=== PATIENT | male | born 1935 | race Caucasian/White ===

== ENCOUNTER 2017-04-29 17:43 | Emergency (ER) | payer MEDICARE ==
--- NOTE | 2017-04-29 20:25 | ED ---
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 Patient states he has suffered from multiple wounds similar to this due to his skin being very thin and being on xarelto. Patient states the wound if very superficial however bled a lot. Bleeding is much more controlled currently. Patient denies any pain, numbness/tingling or edema. Admits to bruising. No other injuries or complaints currently. Has not taken any medications, treatment AIR QUALITY SPECIALIST has been a dressing and compression sock. Is established with wound clinic due to patient's frequent episodes. - History of Current Complaint Stated Complaint: LOWER LT LEG LAC Time Seen by Provider: 04/29/17 18:13 Hx Obtained From: Patient, Family/Research And Development Engineer - Mechanism of Injury: Sharp/Blunt Trauma - chair Onset/Duration: Sudden Onset Aggravating: Movement Alleviating: Compression Timing: Constant Onset Severity: Mild Current Severity: Mild Pain Intensity: 5 Pain Scale Used: 0-10 Numeric Associated Signs & Symptoms: Bruising Related Hx: Dominant Hand (Right) - Additional Pertinent History Primary Care Physician: [id number] - Allergy/Home Medications Allergies/Adverse Reactions: Allergies Allergy/AdvReac Type Severity Reaction Status Date / Time Clindamycin Allergy Mild Rash Verified 04/29/17 17:46 Cortisone Allergy Mild Flushing Verified 04/29/17 17:46 Penicillins Allergy Mild Rash Verified 04/29/17 17:46 TETANUS HORSE SERUM Allergy Swelling Uncoded 04/29/17 17:46 PMH/Surg Hx/FS Hx/Imm Hx Endocrine/Hematology History: Denies: Hx Diabetes, Hx Systemic Lupus Erythematosus, Hx Anemia - iron deficency, Hx Unexplained Bleeding Cardiovascular History: Reports: 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, Hx Congestive Heart Failure, Hx Hypertension, 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, Other Cardiovascular Problems/Disorders - HX AORTIC ANYERUYSM Denies: Hx Angina, Hx Angioplasty, Hx Auto Implanted Cardiovert Defib, Hx Cardiac Arrest, Hx Cardiomegaly, Hx Congenital Heart Disease, Hx Coronary Artery Disease, Hx Deep Vein Thrombosis, Hx Embolism, Hx Hypercholesterolemia, Hx Hypotension, Hx Pacemaker/ICD, Hx Peripheral Vascular Disease, Hx Rheumatic Fever, Hx Syncope Respiratory History: Reports: Hx Chronic Obstructive Pulmonary Disease (COPD), Hx Pleural Effusion, Hx Pneumonia, Other Respiratory Problems/Disorders - BILATERAL LUNG COLLASPE POST SURGICAL Denies: Hx Asthma, Hx Chronic Bronchitis, Hx Cystic Fibrosis, Hx Lung Cancer , Hx Pulmonary Edema, Hx Pulmonary Embolism, Hx Seasonal Allergies, Hx Sleep Apnea GI History: Reports: Other GI Disorders - appendectomy, inquinal hernia repair History: Reports: Hx Benign Prostatic Hyperplasia Denies: Hx Dialysis, Hx Renal Disease Comment Only: Other Problems/Disorders - renal insufficency Musculoskeletal History: Reports: Hx Arthritis - HX BILATERAL HIP REPLACED, Hx Bursitis - OFF AND ON RIGHT LEG, Other Musculoskeletal History - Pelvic mass- benign Denies: Hx Rheumatoid Arthritis Sensory History: Reports: Hx Cataracts - BILATERAL, Hx Contacts or Glasses Denies: Hx Hearing Aid Opthamlomology History: Reports: Hx Cataracts - BILATERAL, Hx Contacts or Glasses Neurological History: Reports: Hx Headaches - HX OF CLUSTER HEADACHES IN THE , Hx Transient Ischemic Attacks (TIA) - 2013 Psychiatric History: Denies: Hx Panic Disorder - Cancer History Hx Chemotherapy: No - Surgical History Surgery Procedure, Year, and Place: both hip replacements, dental, implanted heart valve 2002 - REPLACED FEBRUARY 2013,shoulder, LUMBAR - LAMINECTOMY, hernia, broken legs as a kid; COLLAR BONE. AAA - REPAIR - 2002; CATARACT; LASER SURG - DETACHED RETINE - NO IMPLANT Hx Anesthesia Reactions: Yes - ETHER- N/V - Immunization History Date of Tetanus Vaccine: 2013 Date of Influenza Vaccine: Fall 2015 Immunizations Up to Date: Yes Infectious Disease History: Denies: Hx Clostridium Difficile, Hx Hepatitis, Hx Human Immunodeficiency Virus (HIV), Hx of Known/Suspected MRSA, Hx Shingles, Hx Tuberculosis, Hx Known/ Suspected VRE, Hx Known/Suspected VRSA, History Other Infectious Disease, Traveled Outside the [place] in Last 30 Days - Family History Known Family History: Positive: None, Cardiac Disease, Other - Arthritis, pneumonia Family History: Reviewed and noncontributory - Social History Alcohol Use: Occasionally Hx Substance Use: No Substance Use Type: Reports: None Hx Tobacco Use: No Smoking Status (MU): Never Smoked Tobacco Review of Systems Constitutional: Negative Cardiovascular: Negative Respiratory: Negative Musculoskeletal: Negative Positive: Other - laceration/skin tear to left lower extremity Neurological: Negative All Other Systems Reviewed And Are Negative: Yes Physical Exam Triage Information Reviewed: Yes Vital Signs On Initial Exam: Initial Vitals Temp Pulse Resp BP Pulse Ox 98.6 F 71 16 144/67 97 04/29/17 17:46 04/29/17 17:46 04/29/17 17:46 04/29/17 17:46 04/29/17 17:46 Vital Signs Reviewed: Yes Appearance: Positive: Well-Appearing, No Pain Distress, Well-Nourished Skin: Positive: Warm, Skin Color Reflects Adequate Perfusion, Dry, Other - skin tear/avulsion superficial epidermal layer with no SQ tissue involvement approximately 10 cm linear u shaped. approximates well with pulled tension. very thin, fragile skin. minimal to no bleeding. ecchymosis noted. no tenderness or edema/. Negative: Cold, Cyanosis @, Pale, Erythema @ Head/Face: Positive: Normal Head/Face Inspection Eyes: Positive: Conjunctiva Clear ENT: Positive: Hearing grossly normal Neck: Positive: Supple, Nontender Respiratory/Lung Sounds: Positive: Clear to Auscultation, Breath Sounds Present. Negative: Rales, Rhonchi, Wheezes Cardiovascular: Positive: Normal, RRR, Pulses are Symmetrical in both Upper and Lower Extremities - 2+ pedal. Negative: Murmur, Rub Musculoskeletal: Positive: Normal, Strength/ROM Intact. Negative: Limited @, Interruption @, Pain @ Neurological: Positive: Normal, Sensory/Motor Intact - snesation intact, Alert, Oriented to Person Place, Time, Reflexes Intact, NV Bundle Intact Distally, Normal Gait Psychiatric: Positive: Affect/Mood Appropriate Procedures - Laceration/Wound Repair 1 Location: lower extremity - left lower Description: Linear Length, Depth and Shape: 10cm, linear, u-shaped, skin avulsion, superficial epidermal layer, not deep Irrigated w/ Saline (ccs): 200 Laceration/Wound Explored: clean, no foreign body removed Closure: SteriStrips - 8 Sterile Dressing Applied?: Yes - telfa and kerlex/coband Diagnostics - Vital Signs Vital Signs Temp Pulse Resp BP Pulse Ox 04/29/17 17:46 98.6 F 71 16 144/67 97 - Laboratory Lab Statement: Any lab studies that have been ordered have been reviewed, and results considered in the medical decision making process. Laceration Repair Course/Dx - Course Course Of Treatment: wound was thouroughly irrigated, bleeding was minimal to none. no concern for bony injury, no need for x-ray. wound was closed using 8 steri stips. without complication. well approximation. sutures would not hold due to skin texture, thin and fragile. covered with telfa and kerlex/coband. Keep clean and dry. Aware of worsening signs and symptoms adn to return if occur. No concern for hypovolemia. Follow up pcp and wound clinic. tetanus UTD 2013 - Differential Dx Differental Diagnoses: Abrasion, Avulsion, Healing Wound, Hematoma, Laceration - Clinical Impression Provider Diagnoses: Avulsion of skin Discharge - Discharge Plan Condition: Stable Disposition: HOME Patient Education Materials: Skin Avulsion (ED) Referrals: Toma Bermudez MD [Primary Care Provider] - Additional Instructions: Keep dressing on for 48 hours. Do not get wet. After 48 hours, re-dress, you may shower however do not submerge or soak wound. Re-dress. Let steri-strips fall off on their own. Once off, apply xeroform dressing given to you. Keep clean and dry. Follow up with wound clinic and PCP. If symptoms worsen such as bleeding through dressing please seek medical attention promptly.
[2017-04-29 20:32] VITALS: BP 113/43
[2017-04-29] MEDS ORDERED: LORazepam INJ* 2 MG/ML 1 ML VIAL IV PUSH ONE (20:52)
== END 2017-04-29 20:34 | disposition home or self-care (01) ==
LOC: ED 17:43
DX: S81.812A Laceration without foreign body, left lower leg, initial encounter (principal); X58.XXXA Exposure to other specified factors, initial encounter; Y93.9 Activity, unspecified; Y92.89 Other specified places as the place of occurrence of the external cause; Z79.01 Long term (current) use of anticoagulants; Z86.79 Personal history of other diseases of the circulatory system
CPT/HCPCS: 96374; 99282

== ENCOUNTER 2017-05-10 05:02 | Emergency (ER) | payer MEDICARE ==
--- NOTE | 2017-05-10 05:43 | ED ---
Delicia Brown Rebecca, scribed for Sanjeev Gage MD on 05/10/17 at 0527 . Adult Trauma - HPI Summary HPI Summary: Pt is a 81 y/o M who presents to ED s/p mechanical fall. Reports that yesterday afternoon he fell off a rock pile, causing a RUE laceration and and abrasion. Negative LOC. Applied compression wrappings after the fall. Reports that he has bled through 4 wraps and 2 compression socks on the RUE. Is on Xarelto. - History of Current Complaint Chief Complaint: EDGeneral Stated Complaint: RT ARM LAC Hx Obtained From: Patient Mechanism of Injury: Fall Loss of Consciousness: no loss of consciousness Onset/Duration: Traumatic, Still Present Onset of Pain: Days - 1 day, Prior to Arrival Current Severity: Mild Pain Intensity: 1 Pain Scale Used: 0-10 Numeric Location: Extremities - RUE Associated Signs & Symptoms: Negative: Loss of Consciousness Related History: Anticoagulants - Xarelto - Additional Pertinent History Primary Care Physician: YVAN - Allergy/Home Medications Allergies/Adverse Reactions: Allergies Allergy/AdvReac Type Severity Reaction Status Date / Time Clindamycin Allergy Mild Rash Verified 05/10/17 05:19 Cortisone Allergy Mild Flushing Verified 05/10/17 05:19 Penicillins Allergy Mild Rash Verified 05/10/17 05:19 TETANUS HORSE SERUM Allergy Swelling Uncoded 05/10/17 05:19 PMH/Surg Hx/FS Hx/Imm Hx Endocrine/Hematology History: Denies: Hx Diabetes, Hx Systemic Lupus Erythematosus, Hx Anemia - iron deficency, Hx Unexplained Bleeding Cardiovascular History: Reports: 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, Hx Congestive Heart Failure, Hx Hypertension, 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, Other Cardiovascular Problems/Disorders - HX AORTIC ANYERUYSM Denies: Hx Angina, Hx Angioplasty, Hx Auto Implanted Cardiovert Defib, Hx Cardiac Arrest, Hx Cardiomegaly, Hx Congenital Heart Disease, Hx Coronary Artery Disease, Hx Deep Vein Thrombosis, Hx Embolism, Hx Hypercholesterolemia, Hx Hypotension, Hx Pacemaker/ICD, Hx Peripheral Vascular Disease, Hx Rheumatic Fever, Hx Syncope Respiratory History: Reports: Hx Chronic Obstructive Pulmonary Disease (COPD), Hx Pleural Effusion, Hx Pneumonia, Other Respiratory Problems/Disorders - BILATERAL LUNG COLLASPE POST SURGICAL Denies: Hx Asthma, Hx Chronic Bronchitis, Hx Cystic Fibrosis, Hx Lung Cancer , Hx Pulmonary Edema, Hx Pulmonary Embolism, Hx Seasonal Allergies, Hx Sleep Apnea GI History: Reports: Other GI Disorders - appendectomy, inquinal hernia repair History: Reports: Hx Benign Prostatic Hyperplasia Denies: Hx Dialysis, Hx Renal Disease Comment Only: Other Problems/Disorders - renal insufficency Musculoskeletal History: Reports: Hx Arthritis - HX BILATERAL HIP REPLACED, Hx Bursitis - OFF AND ON RIGHT LEG, Other Musculoskeletal History - Pelvic mass- benign Denies: Hx Rheumatoid Arthritis Sensory History: Reports: Hx Cataracts - BILATERAL, Hx Contacts or Glasses Denies: Hx Hearing Aid Opthamlomology History: Reports: Hx Cataracts - BILATERAL, Hx Contacts or Glasses Neurological History: Reports: Hx Headaches - HX OF CLUSTER HEADACHES IN THE , Hx Transient Ischemic Attacks (TIA) - 2013 Psychiatric History: Denies: Hx Panic Disorder - Cancer History Hx Chemotherapy: No - Surgical History Surgery Procedure, Year, and Place: both hip replacements, dental, implanted heart valve 2002 - REPLACED FEBRUARY 2013,shoulder, LUMBAR - LAMINECTOMY, hernia, broken legs as a kid; COLLAR BONE. AAA - REPAIR - 2002; CATARACT; LASER SURG - DETACHED RETINE - NO IMPLANT Hx Anesthesia Reactions: Yes - ETHER- N/V - Immunization History Date of Tetanus Vaccine: 2013 Date of Influenza Vaccine: Fall 2015 Infectious Disease History: No Infectious Disease History: Denies: Hx Clostridium Difficile, Hx Hepatitis, Hx Human Immunodeficiency Virus (HIV), Hx of Known/Suspected MRSA, Hx Shingles, Hx Tuberculosis, Hx Known/ Suspected VRE, Hx Known/Suspected VRSA, History Other Infectious Disease, Traveled Outside the [place] in Last 30 Days - Family History Known Family History: Positive: Cardiac Disease, Other - Arthritis, pneumonia - Social History Alcohol Use: Occasionally Hx Substance Use: No Substance Use Type: Reports: None Hx Tobacco Use: No Smoking Status (MU): Never Smoked Tobacco Review of Systems Positive: Other - RUE laceration and abrasion s/p fall Neurological: Other - NEGATIVE: LOC All Other Systems Reviewed And Are Negative: Yes Physical Exam Triage Information Reviewed: Yes Vital Signs On Initial Exam: Initial Vitals Temp Pulse Resp BP Pulse Ox 97.0 F 72 16 145/79 97 05/10/17 05:10 05/10/17 05:10 05/10/17 05:10 05/10/17 05:10 05/10/17 05:10 Vital Signs Reviewed: Yes Appearance: Positive: Well-Appearing, No Pain Distress Skin: Positive: Other - skin tear rt forearm Head/Face: Positive: Normal Head/Face Inspection Eyes: Positive: GISELLE ENT: Positive: Hearing grossly normal Neck: Positive: Supple Respiratory/Lung Sounds: Positive: Clear to Auscultation, Breath Sounds Present Cardiovascular: Positive: RRR Abdomen Description: Positive: Nontender, Soft Bowel Sounds: Positive: Present Musculoskeletal: Positive: Other - skin tear rt forearm Neurological: Positive: Alert, Oriented to Person Place, Time Diagnostics - Vital Signs Vital Signs Temp Pulse Resp BP Pulse Ox 05/10/17 05:10 97.0 F 70 16 145/79 97 - Laboratory Lab Statement: Any lab studies that have been ordered have been reviewed, and results considered in the medical decision making process. - CT Brain CT CT Interpretation: No Acute Changes - No evidence of acute pathology. ED physician reviewed this radiology repotr and agrees. CT Interpretation Completed By: Radiologist Adult Trauma Course/Dx - Course Assessment/Plan: Pt is a 81 y/o M who presents to ED s/p mechanical fall. Reports that yesterday afternoon he fell off a rock pile, causing a RUE laceration and and abrasion. Negative LOC. Applied compression wrappings after the fall. Reports that he has bled through 4 wraps and 2 compression socks on the RUE. Is on Xarelto. Brain CT reveals no acute findings. Pt will be D/C to home with Dx of skin tear and head contusion s/p fall with a follow up with his PCP. He understands and agrees. ELevated BP noted and advised to f/u. - Diagnoses Provider Diagnoses: Skin tear, head contusion s/p fall Discharge - Discharge Plan Condition: Stable Disposition: HOME Patient Education Materials: Skin Tear (ED), Contusion in Adults (ED) Referrals: Toma Bermudez MD [Primary Care Provider] - 3 Days The documentation as recorded by the Delicia ortiz Rebecca accurately reflects the service I personally performed and the decisions made by me, Sanjeev Gage MD.
[2017-05-10 06:33] VITALS: BP 118/44
--- NOTE | 2017-05-10 07:48 | RAD ---
INDICATION: Head injury. COMPARISON: Comparison is made with a prior CT of the brain from September 20, 2013. TECHNIQUE: Contiguous axial sections of the brain were obtained from the skull base to the vertex without contrast. FINDINGS: The ventricles, cisterns and sulci are enlarged consistent with diffuse atrophy. No significant focal abnormality or mass effect is seen. There is no evidence for hemorrhage. No significant focal osseous abnormality is seen. The visualized portion of the paranasal sinuses and mastoid air cells appear clear. IMPRESSION: NO EVIDENCE FOR ACUTE INTRACRANIAL ABNORMALITY.
== END 2017-05-10 06:28 | disposition home or self-care (01) ==
LOC: ED 05:02
DX: M79.601 Pain in right arm (principal); S41.111A Laceration without foreign body of right upper arm, initial encounter; W19.XXXA Unspecified fall, initial encounter; Y93.89 Activity, other specified; Y92.89 Other specified places as the place of occurrence of the external cause
CPT/HCPCS: 70450; 99283

== ENCOUNTER 2017-08-10 03:34 | Emergency (ER) | payer MEDICARE ==
[2017-08-10 04:50] LABS: Hematocrit 36 % (42-52); Hemoglobin 12.1 g/dl (14.0-18.0); Mean Corpuscular HGB Conc 33 g/dl (31-36); Mean Corpuscular Hemoglobin 30 pg (27-31); Mean Corpuscular Volume 92 fL (80-94); Mean Platelet Volume 10 um3 (7.4-10.4); Red Blood Count 3.97 10^6/ul (4.0-5.4); Red Cell Distribution Width 14 % (10.5-15); White Blood Count 6.8 10^3/ul (3.5-10.8)
[2017-08-10 05:01] LABS: Albumin 3.7 g/dL (3.2-5.2); BUN/Creatinine Ratio 20.2 (8-20); Calcium 8.8 mg/dL (8.6-10.3); EGFR African American 47.5 (>60); Globulin 2.2 g/dL (2-4); Potassium 4.3 mmol/L (3.5-5.0); Total Bilirubin 0.6 mg/dL (0.2-1.0); Total Protein 5.9 g/dL (6.4-8.9)
[2017-08-10 05:06] LABS: Troponin I 0.04 ng/mL (<0.04)
[2017-08-10 05:17] LABS: TSH (Thyroid Stimulating Horm) 6.49 mcIU/mL (0.34-5.60)
[2017-08-10] MEDS ORDERED: Furosemide IV* 10 MG/ML 10 ML VIAL (100 MG) IV ONE (05:38)
[2017-08-10 06:18] VITALS: BP 117/49
--- NOTE | 2017-08-10 08:30 | RAD ---
INDICATION: Palpitations COMPARISON: Most recent comparison chest x-rays dated April 11, 2017 TECHNIQUE: Single AP portable view of the chest was obtained. FINDINGS: Image quality is compromised due to the relative inferiority of a portable chest x-ray. Sternotomy wires are again seen. There appears to be a mild degree of cardiomegaly. The pulmonary vasculature is engorged and indistinct. There is density obscuring the right lung base and causing right costophrenic angle blunting. More superiorly the lungs are well aerated. Visualized bones are normal for the patient's age. IMPRESSION: In the correct clinical setting chest x-ray findings are most indicative of cardiogenic pulmonary edema with a small right lung base pleural effusion.
--- NOTE | 2017-08-15 17:32 | ED ---
Alton Brown Thomas, scribed for Nesha Kilgore MD on 08/10/17 at 0640 . HPI Cardiac - HPI Summary HPI Summary: The pt is an 82 y/o M presenting to the ED c/o palpitations characterized as racing that began last night when he was seated in his rocking chair. He recently has been dealing with a cough. He becomes short of breath when walking. He has some heaviness in his chest that began in the last hour. Pt denies gottlieb, fever, chills, ear pain, chest pain, back pain, blood in urine or stool, back pain, He is on Xarelto. - History of Current Complaint Chief Complaint: EDDysrhythmPalp Stated Complaint: RAPID HEART RATE Time Seen by Provider: 08/10/17 04:28 Hx Obtained From: Patient Onset/Duration: Started Days Ago - 1, Still Present Timing: Constant - 1 Current Severity: Moderate Pain Intensity: 0 Pain Scale Used: 0-10 Numeric Chest Pain Radiates: No Character: Heaviness Aggravating Factor(s): Other: - When walking, he becomes short of breath Alleviating Factor(s): Nothing Associated Signs and Symptoms: Positive: Other: - Palpitations, cough, SOB, cheast heaviness - Additional Pertinent History Primary Care Physician: [id number] - Allergy/Home Medications Allergies/Adverse Reactions: Allergies Allergy/AdvReac Type Severity Reaction Status Date / Time Clindamycin Allergy Mild Rash Verified 08/10/17 03:40 Cortisone Allergy Mild Flushing Verified 08/10/17 03:40 Penicillins Allergy Mild Rash Verified 08/10/17 03:40 TETANUS HORSE SERUM Allergy Swelling Uncoded 08/10/17 03:40 PMH/Surg Hx/FS Hx/Imm Hx Previously Healthy: No Endocrine/Hematology History: Denies: Hx Diabetes, Hx Systemic Lupus Erythematosus, Hx Anemia - iron deficency, Hx Unexplained Bleeding Cardiovascular History: Reports: 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, Hx Congestive Heart Failure, Hx Hypertension, 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, Other Cardiovascular Problems/Disorders - HX AORTIC ANYERUYSM Denies: Hx Angina, Hx Angioplasty, Hx Auto Implanted Cardiovert Defib, Hx Cardiac Arrest, Hx Cardiomegaly, Hx Congenital Heart Disease, Hx Coronary Artery Disease, Hx Deep Vein Thrombosis, Hx Embolism, Hx Hypercholesterolemia, Hx Hypotension, Hx Pacemaker/ICD, Hx Peripheral Vascular Disease, Hx Rheumatic Fever, Hx Syncope Respiratory History: Reports: Hx Chronic Obstructive Pulmonary Disease (COPD), Hx Pleural Effusion, Hx Pneumonia, Other Respiratory Problems/Disorders - BILATERAL LUNG COLLASPE POST SURGICAL Denies: Hx Asthma, Hx Chronic Bronchitis, Hx Cystic Fibrosis, Hx Lung Cancer , Hx Pulmonary Edema, Hx Pulmonary Embolism, Hx Seasonal Allergies, Hx Sleep Apnea GI History: Reports: Other GI Disorders - appendectomy, inquinal hernia repair History: Reports: Hx Benign Prostatic Hyperplasia Denies: Hx Dialysis, Hx Renal Disease Comment Only: Other Problems/Disorders - renal insufficency Musculoskeletal History: Reports: Hx Arthritis - HX BILATERAL HIP REPLACED, Hx Bursitis - OFF AND ON RIGHT LEG, Other Musculoskeletal History - Pelvic mass- benign Denies: Hx Rheumatoid Arthritis Sensory History: Reports: Hx Cataracts - BILATERAL, Hx Contacts or Glasses Denies: Hx Hearing Aid Opthamlomology History: Reports: Hx Cataracts - BILATERAL, Hx Contacts or Glasses Neurological History: Reports: Hx Headaches - HX OF CLUSTER HEADACHES IN THE , Hx Transient Ischemic Attacks (TIA) - 2013 Psychiatric History: Denies: Hx Panic Disorder - Cancer History Hx Chemotherapy: No - Surgical History Surgery Procedure, Year, and Place: both hip replacements, dental, implanted heart valve 2002 - REPLACED FEBRUARY 2013,shoulder, LUMBAR - LAMINECTOMY, hernia, broken legs as a kid; COLLAR BONE. AAA - REPAIR - 2002; CATARACT; LASER SURG - DETACHED RETINE - NO IMPLANT Hx Anesthesia Reactions: Yes - ETHER- N/V - Immunization History Date of Tetanus Vaccine: 2013 Date of Influenza Vaccine: Fall 2015 Infectious Disease History: No Infectious Disease History: Denies: Hx Clostridium Difficile, Hx Hepatitis, Hx Human Immunodeficiency Virus (HIV), Hx of Known/Suspected MRSA, Hx Shingles, Hx Tuberculosis, Hx Known/ Suspected VRE, Hx Known/Suspected VRSA, History Other Infectious Disease, Traveled Outside the [place] in Last 30 Days - Family History Known Family History: Positive: Cardiac Disease, Other - Arthritis, pneumonia - Social History Alcohol Use: Occasionally Hx Substance Use: No Substance Use Type: Reports: None Hx Tobacco Use: No Smoking Status (MU): Former Smoker Review of Systems Negative: Fever, Chills Negative: Blurred Vision, Diplopia Negative: Sore Throat Positive: Palpitations, Other - Chest heaviness Positive: Shortness Of Breath, Cough Negative: Vomiting, Diarrhea, Nausea Negative: dysuria, hematuria Negative: Myalgia Negative: Rash Negative: Headache Negative: Anxious, Depressed All Other Systems Reviewed And Are Negative: No Physical Exam - Summary Physical Exam Summary: Appearance: Alert, conversive, nontoxic appearing Skin: Warm, dry. There are multiple bruises to the upper extremities and the right cheek. No mottling, no rashes, no contusions HEENT: EOMI, PERRL, moist mucous membranes Neck: No masses on the neck, supple Respiratory: There are crackles and a bit of a wheeze. Cardiovascular: RRR, pulses are symmetrical in both lower and upper extremities Abdomen: Soft, non-tender Bowel Sounds: Present Musculoskeletal: No CVA tenderness, no obvious deformity, moving all extremities in a grossly normal manner Neurological: A&Ox3, CN II-XII Intact, moving all extremities symmetrically Psychiatric: Normal affect and mood Triage Information Reviewed: Yes Vital Signs On Initial Exam: Initial Vitals Temp Pulse Resp BP Pulse Ox 97.2 F 112 16 147/71 98 08/10/17 03:36 08/10/17 03:36 08/10/17 03:36 08/10/17 03:36 08/10/17 03:36 Vital Signs Reviewed: Yes - [place] Coma Scale Coma Scale Total: 15 Diagnostics - Vital Signs Vital Signs Temp Pulse Resp BP Pulse Ox 08/10/17 06:17 64 16 117/49 97 08/10/17 05:18 75 16 126/49 97 08/10/17 03:36 97.2 F 112 16 147/71 98 - Laboratory Lab Results: Lab Results 08/10/17 08/10/17 08/10/17 Range/Units 04:27 04:27 04:27 WBC 6.8 (3.5-10.8) 10^3/ul RBC 3.97 L (4.0-5.4) 10^6/ul Hgb 12.1 L (14.0-18.0) g/dl Hct 36 L (42-52) % MCV 92 (80-94) fL MCH 30 (27-31) pg MCHC 33 (31-36) g/dl RDW 14 (10.5-15) % Plt Count 111 L (150-450) 10^3/ul MPV 10 (7.4-10.4) um3 Neut % (Auto) 72.0 (38-83) % Lymph % (Auto) 17.0 L (25-47) % Teller % (Auto) 8.0 (1-9) % Eos % (Auto) 2.3 (0-6) % Baso % (Auto) 0.7 (0-2) % Absolute Neuts (auto) 4.9 (1.5-7.7) 10^3/ul Absolute Lymphs (auto) 1.2 (1.0-4.8) 10^3/ul Absolute Monos (auto) 0.5 (0-0.8) 10^3/ul Absolute Eos (auto) 0.2 (0-0.6) 10^3/ul Absolute Basos (auto) 0 (0-0.2) 10^3/ul Absolute Nucleated RBC 0 10^3/ul Nucleated RBC % 0 Sodium 138 (133-145) mmol/L Potassium 4.3 (3.5-5.0) mmol/L Chloride 108 (101-111) mmol/L Carbon Dioxide 23 (22-32) mmol/L Anion Gap 7 (2-11) mmol/L BUN 36 H (6-24) mg/dL Creatinine 1.78 H (0.67-1.17) mg/dL Est GFR ( Amer) 47.5 (>60) Est GFR (Non-Af Amer) 37.0 (>60) BUN/Creatinine Ratio 20.2 H (8-20) Glucose 106 H (70-100) mg/dL Calcium 8.8 (8.6-10.3) mg/dL Magnesium 2.0 (1.9-2.7) mg/dL Total Bilirubin 0.60 (0.2-1.0) mg/dL AST 36 (13-39) U/L ALT 38 (7-52) U/L Alkaline Phosphatase 51 (34-104) U/L Troponin I 0.04 H* (<0.04) ng/mL B-Natriuretic Peptide 1681 H ( - 100) pg/mL Total Protein 5.9 L (6.4-8.9) g/dL Albumin 3.7 (3.2-5.2) g/dL Globulin 2.2 (2-4) g/dL Albumin/Globulin Ratio 1.7 (1-3) TSH 6.49 H (0.34-5.60) mcIU/mL Result Diagrams: 08/10/17 04:27 08/10/17 04:27 Lab Statement: Any lab studies that have been ordered have been reviewed, and results considered in the medical decision making process. Disposition - Diagnoses Provider Diagnoses: Heart failure, Pleural effusion - Physician Notifications Discussed Care Of Patient With: Anne Flores Time Discussed With Above Provider: 06:42 Instructed by Provider To: Other - I spoke with Dr. Flores, hospitalist. She feels that this is simply heart failure. We will treat the patient with Lasix. Discharge - Discharge Plan Condition: Stable Disposition: HOME Patient Education Materials: Heart Failure (ED), Pleural Effusion (ED) Referrals: Toma Bermudez MD [Primary Care Provider] - Additional Instructions: Please take your furosemide 40mg daily for the next 3 days. follow up with your primary care physician and your diesel instructor in 1-2 days. return if worse or any new symptoms. Take all medications as previously instructed. The documentation as recorded by the Alton ortiz Thomas accurately reflects the service I personally performed and the decisions made by , Nesha Kilgore MD.
== END 2017-08-10 06:44 | disposition home or self-care (01) ==
LOC: ED 03:34
DX: R00.2 Palpitations (principal); R05 Cough; R06.02 Shortness of breath; Z87.891 Personal history of nicotine dependence
CPT/HCPCS: 36415; 71010; 80053; 83735; 83880; 84443; 84484; 85025; 87040; 93005; 96374; 99283; J1940

== ENCOUNTER 2017-12-23 06:42 | Emergency (ER) | payer MEDICARE ==
[2017-12-23] MEDS ORDERED: Ondansetron INJ* 2 MG/ML VIAL IV ONE (07:17)
[2017-12-23] MEDS ORDERED: Meropenem 1 GM PREMIX(*) 1 GM/50 ML BAG IV ONE (07:18)
[2017-12-23 07:54] LABS: ABS Basophils 0.1 10^3/ul (0-0.2); ABS Eosinophils 0.2 10^3/ul (0-0.6); ABS Monocytes 0.8 10^3/ul (0-0.8); ABS Neutrophils 5.5 10^3/ul (1.5-7.7); ABS Nucleated RBC 0 10^3/ul; Eosinophil % 2.6 % (0-6); Hematocrit 37 % (42-52); Hemoglobin 12.1 g/dl (14.0-18.0); Lymphocyte % 13.1 % (25-47); Mean Corpuscular HGB Conc 33 g/dl (31-36); Mean Corpuscular Hemoglobin 30 pg (27-31); Mean Corpuscular Volume 91 fL (80-94); Mean Platelet Volume 11.4 um3 (7.4-10.4); Nucleated Red Blood Cells % 0.1; Platelet Count 72 10^3/ul (150-450); Red Cell Distribution Width 17 % (10.5-15); White Blood Count 7.6 10^3/ul (3.5-10.8)
[2017-12-23 07:58] LABS: INR 3.61 (0.77-1.02)
[2017-12-23 08:03] LABS: EGFR Non-African American 38.7 (>60)
--- NOTE | 2017-12-23 08:38 | RAD ---
HISTORY: Abdominal distention COMPARISONS: None VIEWS: Frontal views of the abdomen. FINDINGS: BOWEL: There is a nonspecific bowel gas pattern, with nondilated small bowel gas noted. There is a large amount of stool within the colon. CALCULI: There are no abnormal calculi. BONES AND SOFT TISSUES: The patient is status post bilateral hip arthroplasty. Degenerative changes are noted of the spine. The patient is status post median sternotomy. OTHER FINDINGS: There are small bilateral pleural effusions versus chronic pleural thickening. There is no subphrenic gas. IMPRESSION: 1. NONSPECIFIC BOWEL GAS PATTERN. LARGE AMOUNT OF STOOL THROUGHOUT THE COLON. 2. SMALL BILATERAL PLEURAL EFFUSIONS VERSUS CHRONIC PLEURAL THICKENING.
--- NOTE | 2017-12-23 08:39 | RAD ---
HISTORY: Shortness of breath, endocarditis COMPARISONS: December 08, 2017 VIEWS: 4: Frontal dual-energy and lateral views of the chest. FINDINGS: CARDIOMEDIASTINAL SILHOUETTE: The cardiac silhouette is enlarged. The cardiomediastinal silhouette is otherwise normal. JULITO: The julito are normal. PLEURA: There are small bilateral pleural effusions. LUNG PARENCHYMA: There is been interval development of patchy alveolar opacification of the right lung base. ABDOMEN: The upper abdomen is clear. There is no subphrenic gas. BONES AND SOFT TISSUES: No bone or soft tissue abnormalities are noted. OTHER: A right-sided PICC line is noted with the tip overlying the superior vena cava. IMPRESSION: 1. CARDIOMEGALY. 2. SMALL BILATERAL PLEURAL EFFUSIONS. 3. RIGHT LOWER LUNG CONSOLIDATION. RECOMMEND FOLLOW-UP UNTIL RESOLUTION TO EXCLUDE UNDERLYING PULMONARY PARENCHYMAL PATHOLOGY.
[2017-12-23 09:03] VITALS: BP 108/73
--- NOTE | 2017-12-23 09:51 | ED ---
Steve Brown Julia, scribed for Corey Muhammad MD on 12/23/17 at 0724 . Shortness of Breath - HPI Summary HPI Summary: This patient is a 82 year old M [facility] accompanied by his with a chief complaint of SOB, nausea, and abdominal distention described as hard accompanied by poor sleep. Patient reports urinary urgency and frequency but is not putting outhis typical amount of urine. Patient denies fever and abdominal pain. 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 He has had two previous aortic valve replacements with the most recent being in 2012 at [facility] in [place]. He reports no recent use of pain medication. He is not regularly on oxygen but nasal cannula O2 is relieving his symptoms now. Patient is currently taking 1g of Meropenem daily. His states he has been eating poorly. Pt has a hx of CHF. - History of Current Complaint Chief Complaint: EDShortnessOfBreath Time Seen by Provider: 12/23/17 07:06 Hx Obtained From: Patient, Family/Professor Of Law Timing: Constant Dyspnea At: Rest Aggrevating Factors: Movement - exertion Associated Signs & Symptoms: Negative - fever Related History: Similar Episode - aortic valve replacement - Allergy/Home Medications Allergies/Adverse Reactions: Allergies Allergy/AdvReac Type Severity Reaction Status Date / Time Horse/Equine Containing Allergy Swelling Verified 12/23/17 06:50 Products tetanus and diphtheria Allergy Swelling Verified 12/23/17 06:50 toxoids tetanus immune globulin Allergy Swelling Verified 12/23/17 06:50 tetanus toxoid, adsorbed Allergy Swelling Verified 12/23/17 06:50 Tetanus Vaccines and Toxoid Allergy Swelling Verified 12/23/17 06:50 clindamycin AdvReac Intermediate Rash Verified 12/23/17 06:50 cortisone AdvReac Intermediate Flushing Verified 12/23/17 06:50 Penicillins AdvReac Intermediate Rash Verified 12/23/17 06:50 TETANUS HORSE SERUM Allergy Swelling Uncoded 12/23/17 06:50 Home Medications: Home Medications Meropenem 500MG PREMIX(*) [Merrem 500MG PREMIX(*)] 1,000 mg IV Q12H 12/23/17 [ History Confirmed 12/23/17] PMH/Surg Hx/FS Hx/Imm Hx Endocrine/Hematology History: Denies: Hx Diabetes, Hx Systemic Lupus Erythematosus, Hx Anemia - iron deficency, Hx Unexplained Bleeding Cardiovascular History: Reports: 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, Hx Congestive Heart Failure, Hx Hypertension, 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, Other Cardiovascular Problems/Disorders - HX AORTIC ANYERUYSM Denies: Hx Angina, Hx Angioplasty, Hx Auto Implanted Cardiovert Defib, Hx Cardiac Arrest, Hx Cardiomegaly, Hx Congenital Heart Disease, Hx Coronary Artery Disease, Hx Deep Vein Thrombosis, Hx Embolism, Hx Hypercholesterolemia, Hx Hypotension, Hx Pacemaker/ICD, Hx Peripheral Vascular Disease, Hx Rheumatic Fever, Hx Syncope Respiratory History: Reports: Hx Chronic Obstructive Pulmonary Disease (COPD), Hx Pleural Effusion, Hx Pneumonia, Other Respiratory Problems/Disorders - BILATERAL LUNG COLLASPE POST SURGICAL Denies: Hx Asthma, Hx Chronic Bronchitis, Hx Cystic Fibrosis, Hx Lung Cancer , Hx Pulmonary Edema, Hx Pulmonary Embolism, Hx Seasonal Allergies, Hx Sleep Apnea GI History: Reports: Other GI Disorders - appendectomy, inquinal hernia repair History: Reports: Hx Benign Prostatic Hyperplasia Denies: Hx Dialysis, Hx Renal Disease Comment Only: Other Problems/Disorders - renal insufficency Musculoskeletal History: Reports: Hx Arthritis - HX BILATERAL HIP REPLACED, Hx Bursitis - OFF AND ON RIGHT LEG, Other Musculoskeletal History - Pelvic mass- benign Denies: Hx Rheumatoid Arthritis Sensory History: Reports: Hx Cataracts - BILATERAL, Hx Contacts or Glasses Denies: Hx Hearing Aid Opthamlomology History: Reports: Hx Cataracts - BILATERAL, Hx Contacts or Glasses Neurological History: Reports: Hx Headaches - HX OF CLUSTER HEADACHES IN THE , Hx Transient Ischemic Attacks (TIA) - 2013 Psychiatric History: Denies: Hx Panic Disorder - Cancer History Hx Chemotherapy: No - Surgical History Surgery Procedure, Year, and Place: both hip replacements, dental, implanted heart valve 2002 - REPLACED FEBRUARY 2013,shoulder, LUMBAR - LAMINECTOMY, hernia, broken legs as a kid; COLLAR BONE. AAA - REPAIR - 2002; CATARACT; LASER SURG - DETACHED RETINE - NO IMPLANT Hx Anesthesia Reactions: Yes - ETHER- N/V - Immunization History Date of Tetanus Vaccine: 2013 Date of Influenza Vaccine: Fall 2015 Infectious Disease History: No Infectious Disease History: Denies: Hx Clostridium Difficile, Hx Hepatitis, Hx Human Immunodeficiency Virus (HIV), Hx of Known/Suspected MRSA, Hx Shingles, Hx Tuberculosis, Hx Known/ Suspected VRE, Hx Known/Suspected VRSA, History Other Infectious Disease, Traveled Outside the [place] in Last 30 Days - Family History Known Family History: Positive: Cardiac Disease, Other - Arthritis, pneumonia - Social History Occupation: Retired Alcohol Use: None Hx Substance Use: No Substance Use Type: Reports: None Hx Tobacco Use: No Smoking Status (MU): Former Smoker Review of Systems Negative: Fever Positive: Shortness Of Breath Gastrointestinal: Other - abdominal distention Positive: Nausea. Negative: Abdominal Pain Positive: frequency, urgency All Other Systems Reviewed And Are Negative: Yes Physical Exam - Summary Physical Exam Summary: Appearance: Well appearing, no pain distress Skin: warm, dry, reflects adequate perfusion Head/face: normal, mucous membranes are tacky Eyes: EOMI, GISELLE ENT: normal Neck: supple, non-tender Respiratory: bibasilar crackles, breath sounds present, tachypnic Cardiovascular: RRR, pulses symmetrical, hard to hear murmur through respiratory pattern Abdomen: non-tender, soft Bowel Sounds: present Musculoskeletal: strength/ROM intact, PICC line in RUE, 1+ bilateral lower extremity edema Neuro: normal, sensory motor intact, A&Ox3 Triage Information Reviewed: Yes Vital Signs On Initial Exam: Initial Vitals Temp Pulse Resp BP Pulse Ox 97.6 F 58 20 130/45 100 12/23/17 06:48 12/23/17 06:48 12/23/17 06:48 12/23/17 06:48 12/23/17 06:48 Vital Signs Reviewed: Yes Diagnostics - Vital Signs Vital Signs Temp Pulse Resp BP Pulse Ox 12/23/17 06:58 57 25 98 12/23/17 06:53 57 21 99 12/23/17 06:52 127/50 12/23/17 06:48 97.6 F 58 20 130/45 100 - Laboratory Lab Results: Lab Results 12/23/17 12/23/17 12/23/17 Range/Units 07:30 07:30 07:30 WBC (3.5-10.8) 10^3/ul RBC (4.0-5.4) 10^6/ul Hgb (14.0-18.0) g/dl Hct (42-52) % MCV (80-94) fL MCH (27-31) pg MCHC (31-36) g/dl RDW (10.5-15) % Plt Count (150-450) 10^3/ul MPV (7.4-10.4) um3 Neut % (Auto) (38-83) % Lymph % (Auto) (25-47) % Meagher % (Auto) (0-7) % Eos % (Auto) (0-6) % Baso % (Auto) (0-2) % Absolute Neuts (auto) (1.5-7.7) 10^3/ul Absolute Lymphs (auto) (1.0-4.8) 10^3/ul Absolute Monos (auto) (0-0.8) 10^3/ul Absolute Eos (auto) (0-0.6) 10^3/ul Absolute Basos (auto) (0-0.2) 10^3/ul Absolute Nucleated RBC 10^3/ul Nucleated RBC % INR (Anticoag Therapy) 3.61 H (0.77-1.02) APTT 45.6 H (26.0-36.3) seconds Sodium 143 (139-145) mmol/L Potassium 3.8 (3.5-5.0) mmol/L Chloride 109 (101-111) mmol/L Carbon Dioxide 24 (22-32) mmol/L Anion Gap 10 (2-11) mmol/L BUN 46 H (6-24) mg/dL Creatinine 1.71 H (0.67-1.17) mg/dL Est GFR ( Amer) 49.8 (>60) Est GFR (Non-Af Amer) 38.7 (>60) BUN/Creatinine Ratio 26.9 H (8-20) Glucose 109 H (70-100) mg/dL Lactic Acid (0.5-2.0) mmol/L Calcium 8.7 (8.6-10.3) mg/dL Total Bilirubin 2.00 H (0.2-1.0) mg/dL AST 32 (13-39) U/L ALT 23 (7-52) U/L Alkaline Phosphatase 173 H (34-104) U/L Troponin I 0.06 H* (<0.04) ng/mL C-Reactive Protein 4.42 (< 5.00) mg/L B-Natriuretic Peptide > 4902 H ( - 100) pg/mL Total Protein 5.4 L (6.4-8.9) g/dL Albumin 3.4 (3.2-5.2) g/dL Globulin 2.0 (2-4) g/dL Albumin/Globulin Ratio 1.7 (1-3) 12/23/17 12/23/17 Range/Units 07:30 07:30 WBC 7.6 (3.5-10.8) 10^3/ul RBC 4.10 (4.0-5.4) 10^6/ul Hgb 12.1 L (14.0-18.0) g/dl Hct 37 L (42-52) % MCV 91 (80-94) fL MCH 30 (27-31) pg MCHC 33 (31-36) g/dl RDW 17 H (10.5-15) % Plt Count 72 L (150-450) 10^3/ul MPV 11.4 H (7.4-10.4) um3 Neut % (Auto) 72.9 (38-83) % Lymph % (Auto) 13.1 L (25-47) % Meagher % (Auto) 10.0 H (0-7) % Eos % (Auto) 2.6 (0-6) % Baso % (Auto) 1.4 (0-2) % Absolute Neuts (auto) 5.5 (1.5-7.7) 10^3/ul Absolute Lymphs (auto) 1.0 (1.0-4.8) 10^3/ul Absolute Monos (auto) 0.8 (0-0.8) 10^3/ul Absolute Eos (auto) 0.2 (0-0.6) 10^3/ul Absolute Basos (auto) 0.1 (0-0.2) 10^3/ul Absolute Nucleated RBC 0 10^3/ul Nucleated RBC % 0.1 INR (Anticoag Therapy) (0.77-1.02) APTT (26.0-36.3) seconds Sodium (139-145) mmol/L Potassium (3.5-5.0) mmol/L Chloride (101-111) mmol/L Carbon Dioxide (22-32) mmol/L Anion Gap (2-11) mmol/L BUN (6-24) mg/dL Creatinine (0.67-1.17) mg/dL Est GFR ( Amer) (>60) Est GFR (Non-Af Amer) (>60) BUN/Creatinine Ratio (8-20) Glucose (70-100) mg/dL Lactic Acid 1.7 (0.5-2.0) mmol/L Calcium (8.6-10.3) mg/dL Total Bilirubin (0.2-1.0) mg/dL AST (13-39) U/L ALT (7-52) U/L Alkaline Phosphatase (34-104) U/L Troponin I (<0.04) ng/mL C-Reactive Protein (< 5.00) mg/L B-Natriuretic Peptide ( - 100) pg/mL Total Protein (6.4-8.9) g/dL Albumin (3.2-5.2) g/dL Globulin (2-4) g/dL Albumin/Globulin Ratio (1-3) Result Diagrams: 12/23/17 07:30 12/23/17 07:30 Lab Statement: Any lab studies that have been ordered have been reviewed, and results considered in the medical decision making process. - Radiology Abdomen XR Radiology Interpretation Completed By: ED Physician - No obstruction, no free air, Radiologist - 1. NONSPECIFIC BOWEL GAS PATTERN. LARGE AMOUNT OF STOOL THROUGHOUT THE COLON. 2. SMALL BILATERAL PLEURAL EFFUSIONS VERSUS CHRONIC PLEURAL THICKENING. ED Physician has reviewed this report. CXR Radiology Interpretation Completed By: ED Physician - mild CHF, Radiologist - 1. CARDIOMEGALY. 2. SMALL BILATERAL PLEURAL EFFUSIONS. 3. RIGHT LOWER LUNG CONSOLIDATION. RECOMMEND FOLLOW-UP UNTIL RESOLUTION TO EXCLUDE UNDERLYING PULMONARY PARENCHYMAL PATHOLOGY. ED Physician has reviewed this report. - EKG 0728 Cardiac Rate: Other Rate - 58 BPM EKG Rhythm: Atrial Fibrillation - at 58 BPM EKG Interpretation: incomplete LBBB, poor R wave progression, low volatage Re-Evaluation - Re-Evaluation 0832 Re-Evaluation Time: 08:30 Change: Improved Comment: Pt would like something for sleep and nausea. He is signing up for HOSPICE care today. Course/Dx - Course Assessment/Plan: Pt is end-stage CHF with known endocarditis who has recently choosen comfort care measures (rather than go to [facility] for eval for valve replacement). No fever. CHF present. Abd is soft. Tbilil is up but no RUQ pain. No obstruction. Pt feeling much better now. Would like to discharge and be evaluated at home by Hospice. - Diagnoses Differential Diagnosis/HQI/PQRI: Positive: CHF, Pneumonia, Pulmonary Edema, Other - SBO Provider Diagnoses: Aortic valve endocarditis, Chronic CHF, Nausea Discharge - Sign-Out/Discharge Documenting (check all that apply): Discharge - Discharge Plan Condition: Improved Disposition: HOME Prescriptions: Ondansetron HCl [Zofran] 4 mg PO TID PRN #20 tablet PRN Reason: Nausea Patient Education Materials: Heart Failure (ED) Referrals: Toma Bermudez MD [Primary Care Provider] - Additional Instructions: Melatonin for sleep -- ~5mg is appropriate. I like the gummies the best. Call HOSPICE today to arrange in home care. Return if worse, new symptoms or other concerns. Call your doctor today to follow up. - Billing Disposition and Condition Condition: IMPROVED Disposition: HOME The documentation as recorded by the Steve ortiz Julia accurately reflects the service I personally performed and the decisions made by me, Corey Muhammad MD.
== END 2017-12-23 09:27 | disposition home or self-care (01) ==
LOC: ED 06:42
DX: I35.8 Other nonrheumatic aortic valve disorders (principal); I50.9 Heart failure, unspecified; R06.02 Shortness of breath; R11.0 Nausea; Z87.891 Personal history of nicotine dependence
CPT/HCPCS: 36415; 71046; 74019; 80053; 83605; 83880; 84484; 85025; 85610; 85730; 86140; 87040; 93005; 96374; 96375; 99283; J2405